=== PATIENT | female | born 1930 | race Caucasian/White ===

== ENCOUNTER 2016-10-27 09:42 | Emergency (ER) | payer MEDICARE, OTHER ==
[2016-10-27] MEDS ORDERED: HYDROCHLOROTHIA1 T14 PO (09:50)
[2016-10-27] MEDS ORDERED: AMLODIPINE BESY10 MG PO (09:50)
[2016-10-27] MEDS ORDERED: ZETIA 10MG TAB10 MG PO (09:50)
[2016-10-27] MEDS ORDERED: ASPIR LOW81 MG PO (09:51)
[2016-10-27] MEDS ORDERED: FISH OIL REGUL300 MG PO (09:51)
[2016-10-27] MEDS ORDERED: MEBOLIC TABLET1 EACH PO (09:52)
[2016-10-27] MEDS ORDERED: CALTRATE 600 +1 EACH PO (09:52)
[2016-10-27] MEDS ORDERED: ARICEPT5 M1 PO (09:52)
[2016-10-27] MEDS ORDERED: PERCOCET 325 MG1 TA2 PO ×2 (11:50→11:57)
== END 2016-10-27 12:07 | disposition home or self-care (01) ==
LOC: ED 09:42
DX: S52.122A Displaced fracture of head of left radius, initial encounter for closed fracture (principal); W19.XXXA Unspecified fall, initial encounter; Y92.038 Other place in apartment as the place of occurrence of the external cause
CPT/HCPCS: A4565; J1885

== ENCOUNTER 2017-01-10 11:00 | Outpatient (RCR) | payer MEDICARE, OTHER ==
[2016-10-27 12:06] VITALS: BP 149/74
[~2017-01-10 11:00] MED LIST: AMLODIPINE BESY10 MG PO; ARICEPT5 M1 PO; ASPIR LOW81 MG PO; CALTRATE 600 +1 EACH PO; FISH OIL REGUL300 MG PO; HYDROCHLOROTHIA1 T14 PO; MEBOLIC TABLET1 EACH PO; PERCOCET 325 MG1 TA2 PO; ZETIA 10MG TAB10 MG PO
== END 2017-02-07 11:37 | disposition home or self-care (01) ==
LOC: OT 11:00
DX: S52.502D Unspecified fracture of the lower end of left radius, subsequent encounter for closed fracture with routine healing (principal)

== ENCOUNTER → 2017-07-11 | Outpatient (CLI) | payer MEDICARE, OTHER ==
[2016-10-27 12:06] VITALS: BP 149/74
== END ==
LOC: LAB 09:27
DX: I10 Essential (primary) hypertension (principal); E11.9 Type 2 diabetes mellitus without complications; Z00.00 Encounter for general adult medical examination without abnormal findings; G62.9 Polyneuropathy, unspecified; R10.12 Left upper quadrant pain; G30.1 Alzheimer's disease with late onset; E78.2 Mixed hyperlipidemia; R19.7 Diarrhea, unspecified

== ENCOUNTER → 2017-09-17 | Outpatient (CLI) | payer MEDICARE, OTHER ==
[2016-10-27 12:06] VITALS: BP 149/74
== END ==
LOC: LAB 08:14
DX: R19.7 Diarrhea, unspecified (principal)

== ENCOUNTER → 2017-11-10 | Outpatient (CLI) | payer MEDICARE, OTHER ==
[~2017-11-10] VITALS: Ht 162.6 cm; Wt 59.5 kg
[~2017-11-10] MED LIST changes: +CENTRUM SILVER1 EACH; -HYDROCHLOROTHIA1 T14 PO; +LISINOPRIL10 MG PO; -MEBOLIC TABLET1 EACH PO; +VITAMIN C PURE500 M1
[2017-11-10 11:45] VITALS: BP 146/70
[2017-11-10 12:33] LABS: HEMATOCRIT 46.5 % (37.0-47.0); HEMOGLOBIN 14.6 g/dL (12.5-16.0); MEAN CELL VOLUME 96 fl (78-100); MEAN CORPUSCULAR HEMOGLOBIN 30 pg (27-31); MEAN CORPUSCULAR HGB CONC 31 g/dL (33-37); MEAN PLATELET VOLUME 10.7 fl (7.4-10.4); PLATELET COUNT 274 K/mm3 (130-400); RED BLOOD COUNT 4.84 M/mm3 (4.10-5.30); RED CELL DISTRIBUTION WIDTH 12.7 % (11.5-14.5); WHITE BLOOD COUNT 11.8 K/mm3 (4.8-10.8)
[2017-11-10 12:41] LABS: BUN/CREATININE RATIO 19.8 (6.0-26.0); CALCIUM 9.1 mg/dL (8.4-10.2); POTASSIUM 3.9 mmol/L (3.6-5.0)
[2017-11-10 12:50] LABS: CKMB ISOENZYME 1.5 ng/mL (0.6-3.5)
[2017-11-10 12:55] LABS: TROPONIN-I < 0.03 ng/mL (0.00-0.06)
[2017-11-10 13:01] LABS: LYMPHOCYTE 10 % (20-51); MONOCYTE 6 % (3-10); NEUTROPHILS 80 % (42-75)
== END ==
LOC: LAB 11:11 → AMSURD 11:11
PROVIDERS: Family Medicine
DX: I10 Essential (primary) hypertension (principal); R94.31 Abnormal electrocardiogram [ECG] [EKG]

== ENCOUNTER 2017-11-21 09:25 | Emergency (ER) | payer MEDICARE, OTHER ==
[~2017-11-21] VITALS: Ht 162.6 cm; Wt 60.5 kg
[2017-11-21 10:10] LABS: HEMATOCRIT 40.7 % (37.0-47.0); HEMOGLOBIN 12.9 g/dL (12.5-16.0); MEAN CELL VOLUME 95 fl (78-100); MEAN CORPUSCULAR HEMOGLOBIN 30 pg (27-31); MEAN CORPUSCULAR HGB CONC 32 g/dL (33-37); MEAN PLATELET VOLUME 10.4 fl (7.4-10.4); PLATELET COUNT 292 K/mm3 (130-400); RED BLOOD COUNT 4.27 M/mm3 (4.10-5.30); RED CELL DISTRIBUTION WIDTH 12.4 % (11.5-14.5); WHITE BLOOD COUNT 6.3 K/mm3 (4.8-10.8)
[2017-11-21 10:26] LABS: ALBUMIN 3.1 g/dL (3.5-5.0); BUN/CREATININE RATIO 21.9 (6.0-26.0); CALCIUM 8.6 mg/dL (8.4-10.2); POTASSIUM 3.7 mmol/L (3.6-5.0); TOTAL BILIRUBIN 0.2 mg/dL (0.2-1.3); TOTAL PROTEIN 6.6 g/dL (6.3-8.2)
[2017-11-21 10:55] LABS: LYMPHOCYTE 16 % (20-51); MONOCYTE 17 % (3-10); NEUTROPHILS 64 % (42-75)
[2017-11-21 11:22] LABS: PH-URINE 5.5 (5.0 - 8.0); URINE APPEARANCE CLOUDY; URINE BILIRUBIN NEGATIVE (NEGATIVE); URINE BLOOD TRACE (NEGATIVE); URINE COLOR YELLOW; URINE GLUCOSE NEGATIVE (NEGATIVE); URINE KETONE NEGATIVE (NEGATIVE); URINE LEUKOCYTE ESTERASE 2+ (NEGATIVE); URINE NITRATE NEGATIVE (NEGATIVE); URINE PROTEIN(semi-quant) 3+ mg/dL (NEGATIVE); URINE UROBILINOGEN NORMAL (NORMAL)
[2017-11-21 11:24] LABS: URINE MUCUS PRESENT (NOT PRESENT)
[2017-11-21] MEDS ORDERED: MACROBID 100 M100 MG PO (12:44)
[2017-11-21 13:50] VITALS: BP 152/67
== END 2017-11-21 13:50 | disposition home or self-care (01) ==
LOC: ED 09:25
PROVIDERS: Nurse Practitioner
DX: N30.90 Cystitis, unspecified without hematuria (principal); R10.13 Epigastric pain; R07.9 Chest pain, unspecified; E11.9 Type 2 diabetes mellitus without complications; I10 Essential (primary) hypertension; E78.5 Hyperlipidemia, unspecified; F03.90 Unspecified dementia, unspecified severity, without behavioral disturbance, psychotic disturbance, mood disturbance, and anxiety; E89.0 Postprocedural hypothyroidism; Z87.442 Personal history of urinary calculi; Z87.891 Personal history of nicotine dependence; Z88.8 Allergy status to other drugs, medicaments and biological substances; Z79.82 Long term (current) use of aspirin; R60.0 Localized edema
CPT/HCPCS: J7030

== ENCOUNTER → 2017-11-26 | Outpatient (CLI) | payer MEDICARE, OTHER ==
[~2017-11-26] VITALS: Ht 162.6 cm; Wt 56.8 kg
[~2017-11-26] MED LIST changes: +MACROBID 100 M100 MG PO
[2017-11-26 11:05] VITALS: BP 128/68
== END ==
LOC: AMSURD 10:18 → LAB 10:18
DX: I49.9 Cardiac arrhythmia, unspecified (principal); I10 Essential (primary) hypertension; R80.9 Proteinuria, unspecified; E11.9 Type 2 diabetes mellitus without complications; F43.20 Adjustment disorder, unspecified; R05 Cough; H61.21 Impacted cerumen, right ear

== ENCOUNTER → 2017-11-28 | Outpatient (CLI) | payer MEDICARE, OTHER ==
[2017-11-26 11:05] VITALS: BP 128/68
[2017-11-28 12:23] LABS: PH-URINE 6.5 (5.0 - 8.0); URINE APPEARANCE CLEAR; URINE BILIRUBIN NEGATIVE (NEGATIVE); URINE BLOOD NEGATIVE (NEGATIVE); URINE COLOR YELLOW; URINE GLUCOSE 50 mg/dL mg/dL (NEGATIVE); URINE KETONE NEGATIVE (NEGATIVE); URINE LEUKOCYTE ESTERASE NEGATIVE (NEGATIVE); URINE NITRATE NEGATIVE (NEGATIVE); URINE PROTEIN(semi-quant) 2+ mg/dL (NEGATIVE); URINE UROBILINOGEN NORMAL (NORMAL)
[2017-11-28 12:27] LABS: URINE MUCUS PRESENT (NOT PRESENT)
== END ==
LOC: LAB 11:36
PROVIDERS: Family Medicine
DX: R05 Cough (principal); H61.21 Impacted cerumen, right ear; I49.9 Cardiac arrhythmia, unspecified; I10 Essential (primary) hypertension; R80.9 Proteinuria, unspecified; E11.9 Type 2 diabetes mellitus without complications; F43.20 Adjustment disorder, unspecified; Z88.8 Allergy status to other drugs, medicaments and biological substances

== ENCOUNTER 2017-12-06 16:21 | Emergency (ER) | payer MEDICARE, OTHER ==
[~2017-12-06] VITALS: Ht 162.6 cm; Wt 56.8 kg
[2017-12-06 18:01] LABS: EOS # 0.3 (0.04-0.40); EOS % 3.2 % (1.0-5.0); HEMATOCRIT 43.2 % (37.0-47.0); HEMOGLOBIN 13.8 g/dL (12.5-16.0); LYMPH# 1.6 (1.50-4.00); MEAN CELL VOLUME 94 fl (78-100); MEAN CORPUSCULAR HEMOGLOBIN 30 pg (27-31); MEAN CORPUSCULAR HGB CONC 32 g/dL (33-37); MEAN PLATELET VOLUME 10.3 fl (7.4-10.4); MONO # 0.8 (0.20-0.80); NEU # 7.9 (1.40-6.50); PLATELET COUNT 300 K/mm3 (130-400); RED BLOOD COUNT 4.58 M/mm3 (4.10-5.30); RED CELL DISTRIBUTION WIDTH 12.6 % (11.5-14.5); WHITE BLOOD COUNT 10.7 K/mm3 (4.8-10.8)
[2017-12-06 18:08] LABS: ALBUMIN 3.2 g/dL (3.5-5.0); BUN/CREATININE RATIO 37.2 (6.0-26.0); CALCIUM 8.7 mg/dL (8.4-10.2); POTASSIUM 4.4 mmol/L (3.6-5.0); TOTAL BILIRUBIN 0.5 mg/dL (0.2-1.3); TOTAL PROTEIN 6.4 g/dL (6.3-8.2)
[2017-12-06 18:32] LABS: TROPONIN-I < 0.03 ng/mL (0.00-0.06)
[2017-12-06 19:24] LABS: URINE APPEARANCE HAZY; URINE COLOR YELLOW
[2017-12-06 19:25] LABS: URINE BILIRUBIN NEGATIVE (NEGATIVE); URINE BLOOD NEGATIVE (NEGATIVE); URINE GLUCOSE NEGATIVE (NEGATIVE); URINE KETONE 1+ (NEGATIVE); URINE NITRATE NEGATIVE (NEGATIVE); URINE PROTEIN(semi-quant) 2+ mg/dL (NEGATIVE); URINE UROBILINOGEN NORMAL (NORMAL)
[2017-12-06 19:29] LABS: URINE LEUKOCYTE ESTERASE NEGATIVE (NEGATIVE)
[2017-12-06 19:30] LABS: URINE MUCUS PRESENT (NOT PRESENT)
[2017-12-06 19:57] VITALS: BP 168/93
== END 2017-12-06 19:57 | disposition home or self-care (01) ==
LOC: ED 16:21
PROVIDERS: Family Medicine
DX: R53.81 Other malaise (principal); F03.90 Unspecified dementia, unspecified severity, without behavioral disturbance, psychotic disturbance, mood disturbance, and anxiety; I10 Essential (primary) hypertension; E11.9 Type 2 diabetes mellitus without complications; E89.0 Postprocedural hypothyroidism; F17.210 Nicotine dependence, cigarettes, uncomplicated; Z79.82 Long term (current) use of aspirin
CPT/HCPCS: A4353; A4354; J7030